=== PATIENT | male | born 1955 | race Caucasian/White ===

== ENCOUNTER 2024-02-16 21:36 | Emergency (ER) | payer OTHER, SELFPAY ==
--- NOTE | ~2024-02-16 | XR_ITS ---
EXAMINATION: XR chest 1V portable DATE: 02/16/2024 23:23 INDICATION: Shortness of breath TECHNIQUE: frontal view of the chest was obtained. COMPARISON: Chest CT dated 06/02/2016 FINDINGS: Calcified right lower lobe nodule and calcified right hilar lymph nodes consistent with old granuloma tous disease. Patient is rotated slightly towards right which along with body habitus calcified the a symmetric increased lucency of the right hemithorax relative to the left. No focal airspace opacities , pulmonary edema, pleural effusion or pneumothorax. The cardiomediastinal silhouette is normal. Prom inent hypertrophic change at the bilateral anterior first ribs. IMPRESSION: 1. No acute cardiopulmonary disease. Reviewed, dictated and finalized at location A.
[2024-02-16 21:28] VITALS: BP 150/60; PULSE 82; RESP 15; TEMP 37.1; O2SAT 97
[2024-02-16 23:03] LABS: Glucose Point of Care 149 mg/dl (65-105)
--- NOTE | 2024-02-16 23:30 | PC.NURSE ---
Per Nancy at [facility], pt arrived around 1600 today and the family started requesting discharge or transfer to another facility around approx 1999. States that she checked pt's BP, gave him, crackers for his BS of 90's and passed his 2000 meds. States pt did not have orders for side rails on bed. She states that pt's family reports pt was to be send home with Home Health, not admitted to a nursing facility. Pt's niece from [place] called to state that she does not want the patient to return to [facility]. States that pt was sitting in urine and feces upon his families arrival to see him. She states that the facility was not doing anything for the patient. Is concerned because the patient is a fall risk and had no side rails up. Information given to Dr Jeffery who spoke with patient and family. Discussed case with Hunter Guide.
--- NOTE | 2024-02-16 23:45 | ED.GENADULT ---
HPI - General Adult General Chief complaint: Unspecified <Hermann Jeffery MD - Last Filed: 02/17/24 05:29> Stated complaint: wounds to legs <Hermann Jeffery MD - Last Filed: 02/17/24 05:29> Time Seen by Provider: 02/16/24 23:01 <Hermann Jeffery MD - Last Filed: 02/17/24 05:29> History of Present Illness HPI narrative: patient is 61-year-old gentleman who presents emergency department with chief complaint of medical screening exam. The patient was discharged from [facility] to a local nursing facility for rehab the patient had lower extremity stents and has wounds to his lower extremities. The patient arrived at the facility and there were some disagreements with the family in the facility and the family called EMS and had the patient transported our facility. <Hermann Jeffery MD - Last Filed: 02/17/24 05:29> Related Data Allergies/adverse reactions: Allergies Allergy/AdvReac Type Severity Reaction Status Date / Time sulfamethoxazole Allergy Unknown RASH Verified 02/01/24 08:02 trimethoprim Allergy Unknown RASH Verified 02/01/24 08:02 sertraline AdvReac Intermediate Other Verified 02/01/24 08:02 <Hermann Jeffery MD - Last Filed: 02/17/24 05:29> Review of Systems Review of Systems: A 10 system review of systems was completed on the patient and is negative except for what is stated in the HPI. Nursing and ancillary documentation was reviewed. <Hermann Jeffery MD - Last Filed: 02/17/24 05:29> [facility] Past Medical History Medical History: Medical History History of rheumatic fever as a child <Hermann Jeffery MD - Last Filed: 02/17/24 05:29> Social History Social History: Social History Smoking status: Never smoker Alcohol intake: former <Hermann Jeffery MD - Last Filed: 02/17/24 05:29> Exam Narrative: GENERAL: Well-appearing, well-nourished, and in no acute distress. HEAD: Normocephalic, atraumatic. EYES: PERRLA and EOMI. ENT: Nares clear, no rhinorrhea or epistaxis. Mucous membranes moist. NECK: Supple. CHEST: Clear to auscultation. No respiratory distress. HEART: Regular rate and rhythm. No murmur heard. Normal peripheral pulses. ABDOMEN: Soft, nontender, nondistended, normal active bowel sounds. EXTREMITIES: Normal range of motion Multiple wounds present to bilateral feet no purulent drainage. No edema. SKIN: Warm, dry, no rash. NEURO: No focal deficits. Alert and oriented x3. PSYCH: Normal mood and affect. <Hermann Jeffery MD - Last Filed: 02/17/24 05:29> Course Course Emergency Course: I assumed care of this patient at shift change with pending disposition. We did call family several times finally they did come and will take him home patient declined to go to a shelter case management was involved <Mohamud Danielle MD - Last Filed: 02/17/24 13:41> Vital Signs Vital signs: Vital Signs Temperature 37.1 C 02/16/24 21:28 Pulse Rate 82 02/16/24 21:28 Respiratory Rate 15 02/16/24 21:28 Blood Pressure 150/60 H 02/16/24 21:28 Pulse Oximetry 97 02/16/24 21:28 Oxygen Delivery Room Air 02/16/24 21:28 Temperature 36.8 C 02/17/24 07:32 Pulse Rate 81 02/17/24 07:32 Respiratory Rate 16 02/17/24 07:32 Blood Pressure 199/73 H 02/17/24 07:32 Pulse Oximetry 97 02/17/24 07:32 Oxygen Delivery Room Air 02/16/24 21:28 <Hermann Jeffery MD - Last Filed: 02/17/24 05:29> Vital Signs Temperature 37.1 C 02/16/24 21:28 Pulse Rate 82 02/16/24 21:28 Respiratory Rate 15 02/16/24 21:28 Blood Pressure 150/60 H 02/16/24 21:28 Pulse Oximetry 97 02/16/24 21:28 Oxygen Delivery Room Air 02/16/24 21:28 Temperature 36.8 C 02/17/24 07:32 Pulse Rate 81 02/17/24 07:32 Respirato
[2024-02-16 23:51] LABS: Basophils Percent Auto 0.3 % (0.2-1.2); Eosinophils Absolute Auto 0.1 K/mm3 (0-0.3); Eosinophils Percent Auto 1.5 % (0-4.4); Hematocrit 32.1 % (42.0-52.0); Hemoglobin 11.1 g/dL (14.0-18.0); Immature Granulocyte Absolute 0.03 K/mm3 (0.00-0.031); Immature Granulocyte Percent A 0.3 % (0-0.5); Lymphocytes Absolute Auto 1.28 K/mm3 (0.9-3.2); Lymphocytes Percent Auto 14.5 % (18.3-44.2); Mean Corpuscular HGB Conc 34.6 g/dl (32-36); Mean Corpuscular Hemoglobin 30.6 pg (26-34); Mean Corpuscular Volume 88.4 fl (80-100); Monocytes Absolute Auto 0.8 K/mm3 (0.1-0.6); Monocytes Percent Auto 8.5 % (2.6-8.5); Neutrophils Absolute Auto 6.6 K/mm3 (1.3-6.7); Neutrophils Percent Auto 74.9 % (45.5-73.1); Platelet Count Result 178 k/mm3 (150-375); Red Blood Count 3.63 M/mm3 (4.6-6.20); Red Cell Distribution Width 13.2 % (11.5-14.5); White Blood Count 8.9 K/mm3 (4.5-10.0)
[2024-02-17] LABS: Alanine Aminotransferase 24 U/L (6-50); Albumin Level 3.3 g/dL (3.5-5.1); Alkaline Phosphatase 123 U/L (38-126); Anion Gap 4 mmol/L (4-12); Aspartate Amino Transferase 41 U/L (17-59); Bilirubin,Total 0.8 mg/dL (0.2-1.3); Blood Urea Nitrogen 24 mg/dL (9-20); Calcium 8.8 mg/dL (8.4-10.2); Carbon Dioxide 27 mmol/L (22-30); Chloride 96 mmol/L (98-107); Estimated CRCL calculation 140 ml/min; Estimated Glomerular Filt Rate > 60; Glucose 131 mg/dL (65-110); Potassium 4.1 mmol/L (3.4-5.0); Sodium 127 mmol/L (137-145)
[2024-02-17 00:02] LABS: INR 1.1; Prothrombin Time 14.2 Seconds (11.1-14.7)
[2024-02-17 00:03] LABS: Partial Thromboplastin Time 32.4 Seconds (22.3-36.8)
[2024-02-17 07:32] VITALS: BP 199/73; PULSE 81; RESP 16; TEMP 36.8; O2SAT 97
[2024-02-17 08:30] VITALS: BP 187/83; PULSE 76; RESP 16; TEMP 36.4; O2SAT 100
--- NOTE | 2024-02-17 08:30 | PC.NURSE ---
Pt refuses to go back to [facility]. Pt states I'm going to rot there and I can do that at home. care coordination gave pt resources for help at home and took pt's sisters phone number to speak with her.
--- NOTE | 2024-02-17 09:30 | PC.NURSE ---
I spoke with sister Carey and Carey reports she will pick pt up after she speaks to his physician and gets arrangements at home for pt. informed Carey pt ready to leave and anxious to get home. She reports she is trying to find WC
[2024-02-17 10:30] VITALS: BP 180/74; PULSE 80; RESP 16; TEMP 36.7; O2SAT 100
[2024-02-17 12:06] LABS: Glucose Point of Care 176 mg/dl (65-105)
--- NOTE | 2024-02-17 12:30 | PC.NURSE ---
Kami Ladd from adult protective services here to speak to pt. She reports they received anonymous call that pt unable to care for self. Gem from care coordination also called and reports sister is on her way to get pt a wc and get her son to help transport pt
--- NOTE | 2024-02-17 13:11 | PC.NURSE ---
Addendum entered by Loretta Moseley RN 02/17/24 13:13: called at 1100 Original Note: Sister still not here for ride, care coordination reported she called Carey again and Carey said she will be here in 30 minutes
--- NOTE | 2024-02-17 13:16 | PC.NURSE ---
pt dressed in paper scrubs, waiting on cot for transportation
[2024-02-17 13:41] VITALS: BP 184/88; PULSE 80; RESP 18; TEMP 36.7; O2SAT 100
--- NOTE | 2024-02-17 16:17 | PCCCNOTE ---
CC called to discuss discharge plan with pt. Pt refusing to go back to [facility] or any other SNF at this time. I provided him a list of SNF if he were to change his mind after discharge. I gave him resources for home health providers in his insurance network, information for meals on wheels, and [facility] [place] for home equipment. I spoke with pts sister Carey several times on the phone. She contacted [facility], but will need to talk to Dr. Marcial on Tuesday for an order, before they can start services. She picked up a wheelchair and other DME's from [place] before picking pt up from the ED. Pt and family verbalized understanding of the information that I gave them.
== END 2024-02-17 13:53 | disposition home or self-care (01) ==
PROVIDERS: Emergency Medicine; Emergency Provider Family Medicine; PCP Family Medicine Adolescent Medicine
DX: L98.8 Other specified disorders of the skin and subcutaneous tissue (principal)
CPT/HCPCS: 36415; 71045; 80053; 82948; 85025; 85610; 85730; 99283